=== PATIENT | male | born 1955 | race Caucasian/White ===

== ENCOUNTER 2018-01-27 18:01 | Emergency (ER) | payer OTHER ==
[~2018-01-27] VITALS: Ht 170.2 cm; Wt 81.0 kg
[2018-01-27 18:02] VITALS: BP 142/71
== END 2018-01-27 18:15 ==
LOC: ER 18:02
DX: Z02.89 Encounter for other administrative examinations (principal); E11.9 Type 2 diabetes mellitus without complications
CPT/HCPCS: 82948; 99283